=== PATIENT | female | born 1980 | race African-American/Black ===

== ENCOUNTER 2017-05-13 15:45 | Emergency (ER) | payer OTHER ==
[~2017-05-13] VITALS: Ht 172.7 cm; Wt 90.7 kg
[2017-05-13 17:53] LABS: Basophils # (auto) 0.1 uL; Eosinophils # (auto) 0.1 uL; Hemoglobin 11.8 g/dL (12.2-16.2); Monocytes # (auto) 0.5 uL; Nucleated Red Blood Cells % 0.1 %; Red Blood Cells 4.57 10^6/uL (4.0-5.20); White Blood Cell 7.6 10^3/uL (4.4-10.8)
[2017-05-13 17:55] LABS: Basophils % (auto) 1.2 % (0.0-2.0); Eosinophils % (auto) 1.1 % (0.0-7.0); Hematocrit 37.4 % (36.0-46.0); Lymphocytes # (auto) 1.2 uL; Lymphocytes % (auto) 15.7 % (10.0-50.0); Mean Corpuscular Hemoglobin 25.7 pg (28.0-32.0); Mean Corpuscular Hgb Conc. 31.4 g/dL (32.0-36.0); Mean Corpuscular Volume 81.8 fL (80.0-100.0); Monocytes % (auto) 6.4 % (0.0-12.0); Neutrophils # (auto) 5.8 uL; Neutrophils % (auto) 75.6 % (37.0-80.0); Platelet Count (auto) 289 10^3/uL (140-450); Red Cell Distribution Width 15.4 % (11.8-14.3)
[2017-05-13 18:14] LABS: Alanine Aminotransferase 20 U/L (13-56); Alkaline Phosphatase 97 U/L (45-117); Anion Gap 8 (5-15); Aspartate Aminotransferase 15 U/L (15-37); BUN/Creatinine Ratio 9.8; Bilirubin, Total 0.1 mg/dL (0.2-1.0); Blood Urea Nitrogen 24 mg/dL (7-18); Calcium 8.7 mg/dL (8.5-10.1); Carbon Dioxide 23 mmol/L (21-32); Chloride 109 mmol/L (98-107); GFR African American 29 mL/min; GFR Non-African American 24 mL/min; Glucose 125 mg/dL (74-106); Magnesium 2.4 mg/dL (1.6-2.6); Potassium 4.1 mmol/L (3.5-5.1); Sodium 140 mmol/L (136-145); Total Protein 7.6 g/dL (6.4-8.2)
[2017-05-13 19:56] VITALS: BP 165/96
== END 2017-05-13 20:03 | disposition home or self-care (01) ==
LOC: ER 15:45 → EDBD 15:45 → ER 20:03
DX: R55 Syncope and collapse (principal); R20.0 Anesthesia of skin; E78.5 Hyperlipidemia, unspecified; I12.9 Hypertensive chronic kidney disease with stage 1 through stage 4 chronic kidney disease, or unspecified chronic kidney disease; N18.9 Chronic kidney disease, unspecified; R53.1 Weakness
CPT/HCPCS: 36415; 70450; 80053; 83735; 84484; 85025; 93005; 94761